=== PATIENT | female | born 1975 | race Caucasian/White ===

== ENCOUNTER 2021-03-10 17:06 | Emergency (ER) | payer OTHER, MEDICAID ==
[~2021-03-10] VITALS: Ht 172.7 cm; Wt 177.8 kg
[2021-03-10] MEDS ORDERED: NAPROSYN500 M1 PO (17:20)
[2021-03-10] MEDS ORDERED: SYMBICORT160 MCG/4. INH ×2 (17:20→17:21)
[2021-03-10] MEDS ORDERED: ADIPEX-P37.5 MG PO (17:20)
[2021-03-10] MEDS ORDERED: HYDROCODON-ACE1 EAC7 PO (17:56)
[2021-03-10 18:00] VITALS: BP 182/91
== END 2021-03-10 18:06 | disposition home or self-care (01) ==
LOC: M.ERS 17:06
DX: S60.221A Contusion of right hand, initial encounter (principal); Z90.710 Acquired absence of both cervix and uterus; Z90.49 Acquired absence of other specified parts of digestive tract; Z79.899 Other long term (current) drug therapy; Z88.1 Allergy status to other antibiotic agents; W20.8XXA Other cause of strike by thrown, projected or falling object, initial encounter; Y93.89 Activity, other specified; Y92.89 Other specified places as the place of occurrence of the external cause; Y99.8 Other external cause status